=== PATIENT | female | born 1955 | race Caucasian/White ===

== ENCOUNTER 2017-11-02 09:45 | Day surgery (SDC) | payer OTHER, SELFPAY ==
[2017-11-02] VITALS (7 sets, daily range): BP systolic 92–101; BP diastolic 61–69; PULSE 64–81; RESP 10–16; TEMP 36.3–37.1; O2SAT 96–99; BMI 23.0
[2017-11-02] MEDS: SODIUM CHLORIDE 0.9% 1,000 ML 200 ML IV (10:25)
--- NOTE | 2017-11-02 11:44 | P.HP_ITS ---
History of Present Illness Date Patient Seen: 11/02/17 Time Patient Seen: 11:42 Chief complaint: colonoscopy [id number] Narrative: Very pleasant and generally healthy lady with a weak family history of colon cancer in a maternal grandmother. She has had 2 prior colonoscopies with her most recent 1 approximately 5 years ago. She has never had polyps on any of her prior colonoscopies. The history of both of her parents regarding whether not he had polyps is a little fuzzy. She knows they have not had colon cancer but she is uncertain about polyps. Patient History Surgical History History of bladder suspension procedure Status post laminectomy Status post tonsillectomy and adenoidectomy Family & Social History Family History: Reviewed 11/02/17 by Nunu Mays MD Social History: household members spouse Meds Home Medications Medication Instructions Recorded Confirmed Type ibuprofen 400 mg PO Q4HP #0 07/15/12 History loratadine [Claritin] 10 mg PO QDAY #0 07/15/12 History zoster vaccine live (PF) [Zostavax 0.5 ml SQ ONCE #0.5 ml 04/28/16 Rx (PF)] cholecalciferol (vitamin D3) 2,000 unit PO QDAY #0 08/02/16 History [Vitamin D3] alprazolam 0.25 mg PO Q8HP #30 tab 04/10/17 11/02/17 Rx temazepam 15 mg PO SEE INSTRUCTIONS #30 cap 04/10/17 Rx [ESTRIOL MARIANO] 1 mg VAGINAL SEE INSTRUCTIONS #30 04/18/17 Rx ea Allergies Allergy/AdvReac Type Severity Reaction Status Date / Time venom-honey bee Allergy Severe severe Verified 11/02/17 09:59 [BEE VENOM (HONEY BEE)] edema Sulfa (Sulfonamide Allergy Mild CHILDHOOD, Verified 11/02/17 09:59 Antibiotics) UNKNOWN Review of Systems Review of Systems All systems reviewed & are unremarkable except as noted in HPI and below Exam Vital Signs (past 8 hours): Vital Signs - 8 hr 3 11/02/17 10:06 Temperature 98.8 F Pulse Rate 74 Respiratory Rate 16 Blood Pressure 100/65 Pulse Oximetry 97 Pulse Oximetry 97 Oxygen Delivery Method Room Air Narrative Exam Narrative: Very pleasant well-nourished well-developed lady in no distress HEENT: Normocephalic and atraumatic, pupils equal round reactive to light accommodation with anicteric sclera Lungs: Clear to auscultation bilaterally Heart: Regular rate and rhythm Abdomen: Soft, nontender, active bowel sounds Extremities: Warm and well perfused Assessment & Plan Plan: Assessment/Plan Narrative: We have discussed the risks and benefits of colonoscopy with the patient today and she has expressed a desire to complete the procedure.
[2017-11-02] MEDS: MIDAZOLAM 5 MG/5 ML VIAL IV (11:53)
[2017-11-02] MEDS: fentaNYL 250 MCG/5 ML INJ IV (11:55)
--- NOTE | 2017-11-02 12:00 | PM.OP.1 ---
Operative Date/Time/Diagnoses - Date of procedure: 11/02/17 Time of procedure: 12:00 Pre-op diagnosis: Screening Post-op diagnosis: same Procedure & Clinicians Procedure: Colonoscopy to the cecum Same procedure as scheduled: Yes Indications: Last colonoscopy 5 years ago Surgeon: Nunu Mays Click Yes if Unassisted: Yes Anesthesia Type: Sedation (Versed 6 mg; fentanyl 200 mcg) Operative Notes Findings: 1. Excellent prep 2. No polyps or mass lesions 3. No AV malformations 4. Scattered diverticula limited to the sigmoid region 5. Grade 1 internal hemorrhoids Closure Type: not applicable Specimen(s): none sent Procedure in detail: After obtaining informed consent, the patient was brought to the GI suite and placed in the left lateral decubitus position on the examination table. After placement of appropriate monitors, the patient was given incremental doses of Versed and Fentanyl until an appropriate level of sedation was achieved. A time out was held per SCOAP protocol. A digital rectal examination was performed and did not reveal any masses or obstructing lesions. The colonoscope was gently passed into the patient's anus and the entire colon navigated to the level of the cecum with minimal difficulty. Once in the cecum, the scope was withdrawn being sure to go before and beyond all mucosal folds and prominences and get an excellent examination. The findings are noted above. At the level of the rectal vault, the scope was retroflexed and the internal anal canal was examined. The scope was straightened and air aspirated from the colon. The instrument was removed from the patient's body and the procedure was concluded. The patient was allowed to awaken from sedation without difficulty and taken to the post-anesthesia care unit in good condition. Total sedation time 16 min Total withdrawal time 7 min Condition: stable Disposition: PACU Plan for aftercare: 1. Discharge to home 2. Plan for next colonoscopy in 5-10 years depending on whether patient has parents have had a history of polyps
--- NOTE | 2017-11-02 12:48 | SUR.PHASEII ---
To exit with [employer]er. Able to dress self.
== END 2017-11-02 12:47 | disposition home or self-care (01) ==
PROVIDERS: Family Provider Internal Medicine; PCP Internal Medicine; Visit Provider Surgery
PROC: 0DJD8ZZ Inspection of Lower Intestinal Tract, Via Natural or Artificial Opening Endoscopic (ICD-10-PCS; CPT 45378; principal; 2017-11-02 10:45)
DX: Z12.11 Encounter for screening for malignant neoplasm of colon (principal); K57.30 Diverticulosis of large intestine without perforation or abscess without bleeding; K64.0 First degree hemorrhoids
CPT/HCPCS: 45378; 99152; J2250; J3010

== ENCOUNTER → 2018-04-12 07:55 | Outpatient (CLI) | payer OTHER, SELFPAY ==
[2018-04-12 08:19] LABS: Add Manual Diff / Slide Review NO; Basophils Percent Auto 0.3 % (0-2); Eosinophils Percent Auto 1.4 % (2-4); Hematocrit 36.5 % (36-46); Hemoglobin 12.3 g/dL (12.0-16.0); Lymphocytes Percent Auto 36.7 % (25-40); Mean Corpuscular HGB Conc 33.8 % (30-36); Mean Corpuscular Hemoglobin 30.3 PG (26-34); Mean Corpuscular Volume 89.6 fL (80-100); Monocytes Percent Auto 7.4 % (3-14); Neutrophils Absolute Auto 2700 /uL (3000-5900); Neutrophils Percent Auto 54.2 % (50-75); Platelet Count 305 X10^3/uL (150-400); Red Blood Cell Count 4.08 X10^6/uL (4.0-5.2); Red Cell Distribution Width 13.9 % (11.6-14.8); White Blood Cell Count 5.1 X10^3/uL (4.5-11.0)
[2018-04-12 08:52] LABS: Alanine Aminotransferase 31 IU/L (9-52); Albumin 4.3 g/dL (3.5-5.0); Albumin Globulin Ratio 1.6 (1.0-2.8); Alkaline Phosphatase 56 U/L (38-126); Aspartate Aminotransferase 26 IU/L (14-36); BUN Creatinine Ratio 21.7 (6-22); Bilirubin Total 0.4 mg/dL (0.2-1.3); Blood Urea Nitrogen 13 mg/dL (7-17); Carbon Dioxide 29 mmol/L (22-32); Chloride 104 mmol/L (98-107); Cholesterol 258 mg/dL (140-199); Estimated Glomerular Filt Rate > 60.0 mL/min (>60); Globulin 2.7 g/dL (1.7-4.1); Glucose 108 mg/dL (80-110); HDL Cholesterol 73 mg/dL (40-60); HEMOLYSIS < 15 (0-50); LDL Cholesterol Calculated 169 mg/dL (<100); Potassium 4.3 mmol/L (3.4-5.1); Sodium 142 mmol/L (137-145); Triglycerides 81 mg/dL (35-150)
[2018-04-12 09:24] LABS: Vitamin D 25 Hydroxy (D3) 25.9 ng/mL (30.0-100.0)
[2018-04-12 09:38] LABS: Thyroid Stimulating Hormone 0.96 uIU/mL (0.47-4.68)
== END ==
PROVIDERS: PCP Internal Medicine; Visit Provider Internal Medicine
DX: D64.9 Anemia, unspecified (principal); E55.9 Vitamin D deficiency, unspecified
CPT/HCPCS: 36415; 80053; 80061; 82306; 84443; 85025

== ENCOUNTER → 2018-08-09 10:03 | Outpatient (CLI) | payer OTHER, SELFPAY | PROVIDERS: Family Provider Internal Medicine; PCP Internal Medicine; Visit Provider Internal Medicine | DX: M81.0 Age-related osteoporosis without current pathological fracture (principal); Z78.0 Asymptomatic menopausal state; Z82.62 Family history of osteoporosis | CPT/HCPCS: 77080 ==

== ENCOUNTER → 2019-02-15 16:04 | Outpatient (CLI) | payer OTHER, SELFPAY ==
--- NOTE | 2019-02-15 | DI.RAD.S_ITS ---
PROCEDURE: XR LUMBAR SPINE 2-3V INDICATIONS: LUMBAR DJD TECHNIQUE: 3 views of the lumbar spine were acquired. COMPARISON: None. FINDINGS: Bones: No fracture or focal osseous destruction. Multilevel degenerative endplate sclerosis and spurring. Diffuse facet arthropathy. Moderate narrowing of the L4-L5 and L5-S1 disc spaces. Soft tissues: Overlying bowel gas pattern is normal. No suspicious soft tissue calcifications. IMPRESSION: Lower lumbar spondylosis most pronounced at L4-L5 and L5-S1, and facet arthropathy Dictated by: Oscar Branham M.D. on 02/15/2019 at 16:53 Approved by: Oscar Branham M.D. on 02/15/2019 at 16:54
== END ==
PROVIDERS: PCP Internal Medicine; Visit Provider Chiropractor
DX: M47.816 Spondylosis without myelopathy or radiculopathy, lumbar region (principal); M47.817 Spondylosis without myelopathy or radiculopathy, lumbosacral region
CPT/HCPCS: 72100

== ENCOUNTER → 2020-07-11 08:09 | Outpatient (CLI) | payer OTHER, SELFPAY ==
[2020-07-11 09:49] LABS: Add Manual Diff / Slide Review NO; Basophils Absolute Auto 0 /uL (0-100); Basophils Percent Auto 0.5 % (0-2); Eosinophils Absolute Auto 100 /uL (0-450); Eosinophils Percent Auto 1.6 % (2-4); Hematocrit 36.2 % (36-46); Hemoglobin 11.8 g/dL (12.0-16.0); Lymphocytes Absolute Auto 1800 /uL (1100-4500); Lymphocytes Percent Auto 43.5 % (25-40); Mean Corpuscular HGB Conc 32.7 % (30-36); Mean Corpuscular Hemoglobin 29.6 PG (26-34); Mean Corpuscular Volume 90.5 fL (80-100); Monocytes Absolute Auto 400 /uL (0-900); Monocytes Percent Auto 9.7 % (3-14); Neutrophils Absolute Auto 1800 /uL (1500-7000); Neutrophils Percent Auto 44.7 % (50-75); Platelet Count 265 X10^3/uL (150-400); Red Cell Distribution Width 13.7 % (11.6-14.8); White Blood Cell Count 4.1 X10^3/uL (4.5-11.0)
[2020-07-11 10:00] LABS: Alanine Aminotransferase 16 IU/L (<35); Albumin 3.9 g/dL (3.5-5.0); Albumin Globulin Ratio 1.4 (1.0-2.8); Alkaline Phosphatase 60 U/L (38-126); Aspartate Aminotransferase 25 IU/L (14-36); BUN Creatinine Ratio 28.6 (6-22); Bilirubin Total 0.3 mg/dL (0.2-1.3); Blood Urea Nitrogen 16 mg/dL (7-17); Calcium 9.2 mg/dL (8.4-10.2); Carbon Dioxide 28 mmol/L (22-32); Chloride 104 mmol/L (98-107); Cholesterol 248 mg/dL (140-199); Estimated Glomerular Filt Rate > 60.0 mL/min (>60); Globulin 2.7 g/dL (1.7-4.1); Glucose 102 mg/dL (80-110); HDL Cholesterol 77 mg/dL (40-60); HEMOLYSIS < 15 (0-50); LDL Cholesterol Calculated 158 mg/dL (<100); Potassium 4.5 mmol/L (3.4-5.1); Sodium 136 mmol/L (137-145); Total Protein 6.6 g/dL (6.3-8.2); Triglycerides 65 mg/dL (35-150)
[2020-07-11 10:31] LABS: Thyroid Stimulating Hormone 1.06 uIU/mL (0.47-4.68)
[2020-07-13 15:35] LABS: Vitamin D 25 Hydroxy (D3) 39.5 ng/mL (30.0-100.0)
== END ==
PROVIDERS: PCP Internal Medicine; Referring Provider Internal Medicine; Visit Provider Internal Medicine
DX: Z00.00 Encounter for general adult medical examination without abnormal findings (principal)
CPT/HCPCS: 36415; 80053; 80061; 82306; 84443; 85025

== ENCOUNTER → 2020-08-18 12:44 | Outpatient (CLI) | payer OTHER, SELFPAY | PROVIDERS: PCP Internal Medicine; Referring Provider Internal Medicine; Visit Provider Internal Medicine | DX: M85.88 Other specified disorders of bone density and structure, other site (principal); M85.861 Other specified disorders of bone density and structure, right lower leg; M81.0 Age-related osteoporosis without current pathological fracture | CPT/HCPCS: 77080 ==

== ENCOUNTER → 2021-04-29 17:39 | Outpatient (CLI) | payer OTHER, SELFPAY ==
--- NOTE | 2021-04-29 | DI.MRI.S_ITS ---
PROCEDURE: MR LUMBAR SPINE WO CON INDICATIONS: Other spondylosis with radiculopathy, lumbosacral TECHNIQUE: Noncontrast sagittal T1 spin echo and T2 fast echo, sagittal STIR, axial T1 and T2 fast spin echo through the lumbar spine. In cases with scoliosis, additional coronal T2 fast spin echo may be performed. COMPARISON: None. FINDINGS: Image quality: Excellent. Alignment and Curvature: There is normal bony alignment. Bones: Modic type 2 reactive endplate changes noted adjacent to the T12-L1, L3-L4 L4-L5 and L5-S1 discs. No acute vertebral body compression fractures. Spinal Cord: Conus medullaris terminates at the T12 level. Visualized cord demonstrates normal signal and size. Paraspinous Soft Tissues: No paravertebral masses. T12-L1: Loss of disc signal mild, diffuse disc bulge. No central stenosis. No neural foraminal narrowing. No neural compression.. L1-L2: Normal appearance. L2-L3: Slight loss of disc signal. Mild, diffuse disc bulge. Mild bilateral facet hypertrophy. Mild narrowing of the central canal. No neural foraminal narrowing. No neural compression. L3-L4: Loss of disc signal. Mild, diffuse disc bulge. Mild bilateral facet hypertrophy. Mild narrowing of the central canal. Mild bilateral neural foraminal narrowing. No neural compression. Fissure noted in the anterior annulus. L4-L5: Loss of disc signal and height. Mild, diffuse disc bulge. Mild bilateral facet hypertrophy. Mild narrowing of the central canal. Mild bilateral neural foraminal narrowing. No neural compression. Longitudinal annulus fissures noted. L5-S1: Loss of disc signal. Mild to moderate right and mild left facet hypertrophy. No central stenosis. [id number] right and moderate to severe left neural foraminal narrowing with slight compression of the exiting left L5 nerve root. No sacral fractures. Visualized lumbosacral plexus is normal. IMPRESSION: 1. Multilevel degenerative disc disease. 2. Multilevel facet arthropathy. 3. No severe central canal narrowing. 4. Moderate to severe left L5-S1 neural foraminal narrowing with slight compression of the exiting left L5 nerve root. Dictated by: Nilam Gavin MD, PhD on 04/30/2021 at 8:37 Approved by: Nilam Gavin MD, PhD on 04/30/2021 at 9:02
== END ==
PROVIDERS: PCP Internal Medicine; Referring Provider Orthopaedic Surgery Orthopaedic Surgery of the Spine; Visit Provider Orthopaedic Surgery Orthopaedic Surgery of the Spine
DX: M47.27 Other spondylosis with radiculopathy, lumbosacral region (principal); M47.26 Other spondylosis with radiculopathy, lumbar region; M51.17 Intervertebral disc disorders with radiculopathy, lumbosacral region; M51.16 Intervertebral disc disorders with radiculopathy, lumbar region; M48.07 Spinal stenosis, lumbosacral region; M48.061 Spinal stenosis, lumbar region without neurogenic claudication
CPT/HCPCS: 72148

== ENCOUNTER → 2021-05-06 14:29 | Outpatient (CLI) | payer OTHER, SELFPAY ==
[2021-05-06 15:09] LABS: COVID19 -Nasal RAPID Negative (Negative)
== END ==
PROVIDERS: PCP Internal Medicine; Visit Provider Physician Assistant
DX: Z20.822 Contact with and (suspected) exposure to COVID-19 (principal)
CPT/HCPCS: 87635

== ENCOUNTER → 2021-09-17 15:57 | Outpatient (CLI) | payer OTHER, SELFPAY ==
--- NOTE | 2021-09-17 16:00 | DI.MRI.S_ITS ---
PROCEDURE: MR ANKLE LT WO CON INDICATIONS: CHRONIC INSTABILLITY,LEFT ANKLE TECHNIQUE: Noncontrast sagittal T1 spin echo and T2 fast spin echo with fat saturation, axial proton density fast spin echo and T2 fast spin echo with fat saturation, coronal T1 spin echo and T2 fast spin echo with fat saturation through the ankle/hindfoot. COMPARISON: None. FINDINGS: Image quality: Excellent. Bones and joints: No evidence of fracture. 6.9 x 4.3 mm T2 hyperintense/T1 hypointense lesion in the talus, which may reflect fibrocystic change. No osteochondral injuries of the talar dome. Small tibiotalar joint effusion. Medial structures: The posterior tibialis, flexor digitorum longus, and flexor hallucis longus tendons are intact. The posterior tibial neurovascular bundle appears normal within the tarsal tunnel, without extrinsic mass effect. The deltoid and spring ligaments are intact. Fatty atrophy of the abductor hallucis versus intramuscular lipoma. Lateral structures: Disruption of the anterior talofibular and tibiofibular ligaments. The calcaneofibular and posterior talofibular ligaments appear intact. More superiorly, the posterior tibiofibular ligament appears intact. The tibiofibular syndesmosis widening, measuring up to 4 mm. The peroneus longus and brevis tendons demonstrate normal location and morphology. The sinus tarsi demonstrates normal fatty signal, without edema, fibrosis, or cyst formation. Visualized sinus tarsi components (cervical ligament, interosseous talocalcaneal ligament, roots of the inferior extensor retinaculum) appear normal. Anterior structures: The tibialis anterior, extensor hallucis longus, and extensor digitorum longus tendons appear intact. The dorsal talonavicular ligament appears intact. Posterior and plantar structures: Achilles tendon is intact. Medial and lateral bands of the plantar fascia are of normal thickness. No abductor digiti quinti muscle atrophy to suggest Rodriguez neuropathy. IMPRESSION: 1. Disruption of the anterior talofibular and tibiofibular ligaments. 2. Widening of the tibiofibular syndesmosis. 3. Small tibiotalar joint effusion. 4. Fatty atrophy at the abductor hallucis versus intramuscular lipoma. Dictated by: Hernan Person M.D. on 09/17/2021 at 17:07 Approved by: Hernan Person M.D. on 09/17/2021 at 17:15
== END ==
PROVIDERS: PCP Internal Medicine; Referring Provider Orthopaedic Surgery Foot and Ankle Surgery; Visit Provider Orthopaedic Surgery Foot and Ankle Surgery
DX: S93.432A Sprain of tibiofibular ligament of left ankle, initial encounter (principal); S93.492A Sprain of other ligament of left ankle, initial encounter; M25.372 Other instability, left ankle; M25.472 Effusion, left ankle
CPT/HCPCS: 73721

== ENCOUNTER → 2023-01-12 12:12 | Outpatient (CLI) | payer OTHER, SELFPAY | PROVIDERS: Family Provider Internal Medicine; PCP Internal Medicine; Referring Provider Internal Medicine; Visit Provider Internal Medicine | DX: G57.92 Unspecified mononeuropathy of left lower limb (principal) | CPT/HCPCS: 95886; 95910 ==

== ENCOUNTER → 2023-06-28 11:30 | Outpatient (CLI) | payer OTHER, SELFPAY ==
--- NOTE | 2023-06-28 11:34 | DI.RAD.S_ITS ---
PROCEDURE: XR KNEE RT 3V INDICATIONS: ACUTE PAIN OF RIGHT KNEE TECHNIQUE: 3views of the knee were acquired. COMPARISON: None. FINDINGS: Bones: No fractures or dislocations. No suspicious bony lesions. Narrowing of the medial and lateral compartments seen, worse medially. Soft tissues: Large suprapatellar joint effusion seen IMPRESSION: Presence of a large suprapatellar joint effusion Dictated by: Nithin Robles M.D. on 06/28/2023 at 13:38 Approved by: Nithin Robles M.D. on 06/28/2023 at 13:39
== END ==
PROVIDERS: Family Provider Internal Medicine; PCP Internal Medicine; Referring Provider Internal Medicine; Visit Provider Internal Medicine
DX: M25.561 Pain in right knee (principal); M25.461 Effusion, right knee
CPT/HCPCS: 73562

== ENCOUNTER → 2023-09-08 12:44 | Outpatient (CLI) | payer OTHER, SELFPAY ==
--- NOTE | 2023-09-08 12:45 | DI.RAD.S_ITS ---
PROCEDURE: XR DEXA AXIAL SKELETON INDICATIONS: Age-related osteoporosis COMPARISON: [facility], [facility], XR DEXA AXIAL SKELETON, 08/18/2020, 13:09. [facility], [facility], XR DEXA AXIAL SKELETON, 08/09/2018, 10:26. FINDINGS: Lumbar Spine: Bone mineral density 0.809 g/cm2, T score -2.2. Left Hip: Bone mineral density 0.613 g/cm2, T score -2.7. Left Femoral Neck: Bone mineral density 0.491 g/cm2, T score -3.2. Right Hip: Bone mineral density 0.659 g/cm2, T score -2.3. Right Femoral Neck: Bone mineral density 0.514 g/cm2, T score -3.0. Fracture Risk Calculation (when applicable): Not provided due to osteoporosis. (T score greater or equal to -1.0 to: NORMAL) (T score from -1.1 to -2.4: OSTEOPENIA) (T score less than or equal to -2.5: OSTEOPOROSIS) IMPRESSION: Osteoporosis. Follow-up guidelines as follows: Osteoporosis: Consider a repeat DEXA and Vertebral Fracture Assessment (VFA) exam in 2 years or sooner if medically necessary, to reassess this patient's status. Osteopenia: Consider a repeat DEXA in 2-3 years to reassess this patient's status, or if there is a new clinical indication. Normal: Consider a repeat DEXA in 5 years or sooner, or if there is a new clinical indication. Dictated by: Ritchie Rubio M.D. on 09/08/2023 at 14:19 Approved by: Ritchie Rubio M.D. on 09/08/2023 at 14:20
== END ==
LOC: RAD 12:44
PROVIDERS: Family Provider Internal Medicine; PCP Internal Medicine; Referring Provider Internal Medicine; Visit Provider Internal Medicine
DX: M81.0 Age-related osteoporosis without current pathological fracture (principal); Z78.0 Asymptomatic menopausal state
CPT/HCPCS: 77080